=== PATIENT | male | born 1955 | race Caucasian/White ===

== ENCOUNTER 2018-04-20 11:09 | Emergency (ER) | payer BC ==
[~2018-04-20] VITALS: Ht 172.7 cm; Wt 81.7 kg
[~2018-04-20 11:09] MED LIST: NAPROSYN500 MG PO; NOHOMEMEDICATIONS; NORFLEX100 MG PO
[2018-04-20 12:11] LABS: URINE BILIRUBIN NEGATIVE (Negative); URINE BLOOD NEGATIVE (Negative); URINE CLARITY CLEAR; URINE COLOR YELLOW; URINE GLUCOSE-RANDOM* NEGATIVE (Negative); URINE KETONES NEGATIVE (Negative); URINE LEUKOCYTES-REFLEX NEGATIVE (Negative); URINE NITRITE-REFLEX NEGATIVE (Negative); URINE PROTEIN (DIPSTICK) NEGATIVE (Negative); URINE SPECIFIC GRAVITY <= 1.005 (1.005-1.035); URINE UROBILINOGEN 0.2 E.U./dl (0.2-1.0)
[2018-04-20 12:31] LABS: ABSOLUTE NEUTROPHILS 2.7 thou/uL (1.4-8.2); BASOPHILS 0.9 % (0.0-2.0); EOSINOPHILS 1.1 % (0.0-3.0); HEMATOCRIT 37.9 % (42.0-52.0); HEMOGLOBIN 13.4 gm/dL (14.0-18.0); LYMPHOCYTES 18.7 % (24.0-44.0); MCH 31.3 pg (26.0-34.0); MCHC 35.2 g/dL (28.0-37.0); MONOCYTES 9.6 % (1.0-8.0); PLATELET COUNT 234 thou/uL (150-400); POLYS 69.7 % (36.0-66.0); RBC 4.26 mil/uL (4.50-6.00); RDW 12.5 % (10.5-14.5); WBC 3.8 thou/uL (4.0-11.0)
[2018-04-20 12:34] LABS: CALCIUM 8.3 mg/dL (8.5-10.1); CREATININE 0.9 mg/dL (0.7-1.3); POTASSIUM 3.9 mmol/L (3.5-5.1)
[2018-04-20 12:41] LABS: ALBUMIN 4.1 g/dL (3.4-5.0); TOTAL BILIRUBIN 0.3 mg/dL (<0.1-1.0); TOTAL PROTEIN 7.2 g/dL (6.4-8.2)
[2018-04-20] MEDS ORDERED: IBUPROFEN 200200 M1 PO (12:52)
[2018-04-20] MEDS ORDERED: FLOMAX0.4 MG PO (13:18)
[2018-04-20 13:58] VITALS: BP 123/77
== END 2018-04-20 13:58 | disposition home or self-care (01) ==
LOC: ER 11:09
PROVIDERS: Physician Assistant
DX: N40.1 Benign prostatic hyperplasia with lower urinary tract symptoms (principal); R33.8 Other retention of urine